=== PATIENT | female | born 2000 | race Hispanic/Latino ===

== ENCOUNTER 2023-01-16 23:22 | Emergency (ER) | payer BC ==
--- OUTSIDE RECORDS SUMMARY | 2023-01-16 23:27 | XMS REPORT | Continuity of Care Document ---
:2000 Author Organization [facility] t Address [address] [place] [address] Care Team Providers Name Role Phone ESTELA BARRON Primary Care Physician Unavailable DR ESTELA BARRON Attending Clinician Unavailable [id number] Attending Clinician Unavailable [id number] Attending Clinician Unavailable Siva_Papsteffi Attending Clinician Unavailable Ayeni_Ibitoye_Olubu Attending Clinician Unavailable Jolanta Attending Clinician Unavailable AMY Attending Clinician Unavailable DR ESTELA BARRON Admitting Clinician Unavailable Siva_Papsteffi Admitting Clinician Unavailable Ayeni_Ibitoye_Olubu Admitting Clinician Unavailable Jolanta Admitting Clinician Unavailable AMY Admitting Clinician Unavailable Payers Payer Name Policy Type Policy Number Effective Date Expiration Date Marva LINDA [place] MADDI [id number] [facility] [id number] 2014 [place] (PPO) 00:00:00 [facility]OD [id number] ADMIN Problems Condition Condition Condition Status Onset Resolution Last Treating Co mments Source Name Details Category Date Date Treatment Clinician Date History of History of Problem Active 2020-0 M [place] chlamydial Chlamydial 7-20 da infection Infection 00:00: Medi angel 00 Group History of History of Problem Active 2020-0 [facility] [place] sexually Sexually 2-26 da transmitte Transmitte 00:00: Me dical d disease d Disease 00 Grou p Initial Initial Problem Active 0 [place] prescripti Prescripti 2-26 da on of oral on of Oral 00:00: Me dical contracept Contracept 00 Gr oup ion ion Bacterial Bacterial Problem Active 0 [place] vaginosis Vaginosis 1-13 da 00:00: Medical 00 Group Chlamydial Chlamydial Problem Active 2020-0 [place] infection Infection 113 da 00:00: Medical 00 Group Infection Infection Problem Active 0 [place] by by 1 da Trichomona Trichomona 00:00: Me dical s s 00 Group High risk High Risk Problem Active 0 [place] sexual Sexual 1 da behavior Behavior 00:00: Medica l 00 Group Proteinuri Proteinuri Problem Active 2019-0 [place] a a 1 da 00:00: Medical 00 Group Venereal Venereal Problem Active 0 [place] disease Disease 1 da screening Screening 00:00: [facility] angel 00 Group Exposure Exposure Problem Active [place] to to 108 da Neisseria Neisseria 00:00: [facility] gonorrhoea Gonorrhoea 00 Gr oup e e Obesity Obesity Problem Active [place] [facility] Upper Upper Problem Active [place] respirator Respirator da y y Medical infection Infection Grou p Multiple Multiple Problem Active [place] boils Boils [facility] Group Acanthosis Acanthosis Problem Active M [place] nigricans Nigricans da Medical Group Abdominal Abdominal Problem Active [place] pain Pain da [facility] Allergies, Adverse Reactions, Alerts Allergy Allergy Status Severity Reaction(s) Onset Inactive Treating Comm ents Source Name Type Date Date Clinician No Known MA Active UNKNOWN [facility] Social History Smoking Status Start Date Stop Date Source Never Smoker [facility] Medications Ordered Filled Start Stop Current Ordering Indication Dosage Frequency Signature Comments Components Source Medication Medication Date Date Medication? Clinician (SIG) Name Name Xulane 150 Xulane 150 No 1patch( Q1W Xulane 150 [place] mcg-35 mcg-35 es) mcg-35 da mcg/24 hr mcg/24 hr mcg/24 hr Medical transdermal transdermal transderma Group patch Apply patch Apply l patch 1 patch 1 patch Apply 1 every week every week patch by by every week transdermal transdermal by route. route. transderma l route. ferrous ferrous No ferrous [place] sulfate 325 sulfate 325 sulfate da mg (65 mg mg (65 mg 325 mg (65 [facility] iron) iron) mg iron) al tablet TAKE tablet TAKE tablet Health 1 TABLET BY 1 TABLET BY TAKE 1 Outreac MOUTH ONCE MOUTH ONCE TABLET BY h A DAY Take A DAY Take MOUTH ONCE Program 2 hours 2 hours A DAY Take before or 2 before or 2 2 hours hours after hours after before or other other 2 hours supplements supplements after or or other medications medications supplement . . s or medication s. Immunizations Ordered Immunization Filled Immunization Date Status Commen ts Source Name Name influenza, influenza, 2014-04-12 Completed [place] injectable, injectable, 11:26:04 Medical Grou p quadrivalent, quadrivalent, preservative free preservative free HPV, quadrivalent HPV, quadrivalent 2014-04-12 Completed [place] 11:26:03 Medical Group HPV, quadrivalent HPV, quadrivalent 2013-11-15 Completed [place] 11:03:00 Medical Group varicella varicella 2013-11-15 Completed [place] 11:03:00 Medical Group meningococcal MCV4P meningococcal MCV4P 2013-11-15 Completed [place] 11:02:00 Medical Group Tdap Tdap 2013-11-15 Completed [place] 11:02:00 Medical Group Hep A, ped/adol, 2 Hep A, ped/adol, 2 2008-07-24 Completed [place] dose dose 00:00:00 Medical Group Hep A, ped/adol, 2 Hep A, ped/adol, 2 2005-01-14 Completed [place] dose dose 00:00:00 Medical Group pneumococcal pneumococcal 2005-01-14 Completed [place] conjugate PCV 7 conjugate PCV 7 00:00:00 [facility] Group DTaP, 5 pertussis DTaP, 5 pertussis 2004-10-05 Completed [place] antigens antigens 00:00:00 Medical Group IPV IPV 2004-10-05 Completed [place] 00:00:00 Medical Group MMR MMR 2004-10-05 Completed [place] 00:00:00 Medical Group DTaP, 5 pertussis DTaP, 5 pertussis 2002-04-04 Completed [place] antigens antigens 00:00:00 Medical Group MMR MMR 2002-04-04 Completed [place] 00:00:00 Medical Group pneumococcal pneumococcal 2002-04-04 Completed [place] conjugate PCV 7 conjugate PCV 7 00:00:00 Medi angel Group DTaP, 5 pertussis DTaP, 5 pertussis 2002-01-17 Completed [place] antigens antigens 00:00:00 Medical Group Hib (PRP-T) Hib (PRP-T) 2002-01-17 Completed [place] 00:00:00 Medical Group Hep B, adolescent or Hep B, adolescent or 2002-01-17 Completed [place] pediatric pediatric 00:00:00 Medical Group IPV IPV 2002-01-17 Completed [place] 00:00:00 Medical Group DTaP, 5 pertussis DTaP, 5 pertussis 2001-10-06 Completed [place] antigens antigens 00:00:00 Medical Group Hib (PRP-T) Hib (PRP-T) 2001-10-06 Completed [place] 00:00:00 Medical Group Hep B, adolescent or Hep B, adolescent or 2001-10-06 Completed [place] [facility] pediatric 00:00:00 Medical Group IPV IPV 2001-10-06 Completed [place] 00:00:00 Medical Group Hep B, adolescent or Hep B, adolescent or 2000 Completed [place] [facility] pediatric 00:00:00 Medical Group Vital Signs Vital Name Observation Time Observation Value Comments Source BP Diastolic 2021-12-01 00:00:00 79 mm[Hg] [facility] Height 2021-12-01 00:00:00 57 [in_i] [facility] BMI (Body Mass 2021-12-01 00:00:00 46.8 kg/m2 [facility] Index[facility] Group BP Systolic 2021-12-01 00:00:00 119 mm[Hg] [facility] Body Weight 2021-12-01 00:00:00 216.5 [lb_av] [facility] BP Diastolic 2021-03-25 00:00:00 82 mm[Hg] [place] [facility] Height 2021-03-25 00:00:00 57 [in_i] [place] [facility] BMI (Body Mass 2021-03-25 00:00:00 44.1 kg/m2 [place] mechanical meter tester [facility] Index) [facility] BP Systolic 2021-03-25 00:00:00 124 mm[Hg] [place] [facility] Body Weight 2021-03-25 00:00:00 3264 [oz_av] [place] [facility] BP Diastolic 2021-02-06 00:00:00 78 mm[Hg] [place] [facility] Height 2021-02-06 00:00:00 57 [in_i] [place] [facility] BMI (Body Mass 2021-02-06 00:00:00 45 kg/m2 [place] mechanical meter tester [facility] Index) [facility] BP Systolic 2021-02-06 00:00:00 111 mm[Hg] [place] [facility] Body Weight 2021-02-06 00:00:00 207.8 [lb_av] [place] [facility] BP Diastolic 2020-06-24 00:00:00 83 mm[Hg] [facility] Height 2020-06-24 00:00:00 57 [in_i] [facility] BMI (Body Mass 2020-06-24 00:00:00 45.2 kg/m2 [place] mechanical meter tester Medical Index) Group BP Systolic 2020-06-24 00:00:00 130 mm[Hg] [facility] Body Weight 2020-06-24 00:00:00 209 [lb_av] [facility] BP Diastolic 2020-01-29 00:00:00 96 mm[Hg] [place] [facility] Height 2020-01-29 00:00:00 57 [in_i] [place] [facility] BMI (Body Mass 2020-01-29 00:00:00 44.7 kg/m2 [place] mechanical meter tester [facility] Index) [facility] BP Systolic 2020-01-29 00:00:00 122 mm[Hg] [place] [facility] Body Weight 2020-01-29 00:00:00 206.6 [lb_av] [place] [facility] BP Diastolic 2019-12-17 00:00:00 80 mm[Hg] [facility] Height 2019-12-17 00:00:00 57 [in_i] [facility] BMI (Body Mass 2019-12-17 00:00:00 44.5 kg/m2 [place] mechanical meter tester Medical Index) Group BP Systolic 2019-12-17 00:00:00 136 mm[Hg] [facility] Body Weight 2019-12-17 00:00:00 205.7 [lb_av] [facility] BP Diastolic 2019-07-25 00:00:00 76 mm[Hg] [facility] Height 2019-07-25 00:00:00 57 [in_i] [facility] BMI (Body Mass 2019-07-25 00:00:00 45.7 kg/m2 [facility] mechanical meter tester Medical Index) Group BP Systolic 2019-07-25 00:00:00 116 mm[Hg] [facility] Body Weight 2019-07-25 00:00:00 211.2 [lb_av] [facility] BP Diastolic 2019-06-06 00:00:00 80 mm[Hg] [facility] Height 2019-06-06 00:00:00 57 [in_i] [facility] BMI (Body Mass 2019-06-06 00:00:00 44.8 kg/m2 [facility] mechanical meter tester Medical Index) Group BP Systolic 2019-06-06 00:00:00 130 mm[Hg] [facility] Body Weight 2019-06-06 00:00:00 207.2 [lb_av] [facility] Procedures Procedure Date / Time Performed Performing Clinician [facility] e US, transvaginal 2021-02-06 00:00:00 [facility] US, transvaginal 2020-01-29 00:00:00 [facility] Plan of Care Planned Activity Planned Date Details Comments Source Diagnostic Test 2021-12-01 urinalysis, [facility] Pending 00:00:00 dipstick [code = Group urinalysis, dipstick] Diagnostic Test 2021-12-01 test, [facility] Pending 00:00:00 urine [code = Group test, urine] Diagnostic Test 2021-12-01 CT + NG + TV, DNA, [place] mechanical meter tester Medical Pending 00:00:00 urine/swab [code = Group CT + NG + TV, DNA, urine/swab] Diagnostic Test 2021-12-01 HIV (1+2) Ab [facility] Pending 00:00:00 screen, serum [code Group = HIV (1+2) Ab screen, serum] Diagnostic Test 2021-12-01 R[facility]rapid plasma [facility] Pending 00:00:00 reagin), serum Group [code = RPR (rapid plasma reagin), serum] Diagnostic Test 2021-12-01 HBsAg (hepatitis B [facility] mechanical meter tester [facility] Pending 00:00:00 surface Ag), serum Group [code = HBsAg (hepatitis B surface Ag), serum] Diagnostic Test 2021-12-01 prolactin, [facility] Pending 00:00:00 [code = prolactin, Group serum] Diagnostic Test 2021-12-01 TSH, serum, reflex [facility] mechanical meter tester [facility] Pending 00:00:00 free T4 [code = Group TSH, serum, reflex free T4] Diagnostic Test 2021-12-01 FSH [facility] [facility] Pending 00:00:00 (follicle-stimulati Group ng hormone), serum [code = FSH (follicle-stimulati ng hormone), serum] Diagnostic Test 2021-12-01 estradiol, serum [facility] Pending 00:00:00 [code = estradiol, Group serum] Diagnostic Test 2021-12-01 testosterone, [place] [facility] edical Pending 00:00:00 total, serum [code Group = testosterone, total, serum] Diagnostic Test 2021-12-01 dhea-sulfate, serum [facility] orda [facility] Pending 00:00:00 [code = Group dhea-sulfate, serum] Diagnostic Test 2021-12-01 17-[facility]progester [facility] one, QN, serum Group [code = 17-hydroxyprogester one, QN, serum] Diagnostic Test 2021-03-25 lipid panel, serum [facility] Pending 00:00:00 [code = lipid Health Outreac h panel, serum] Program Diagnostic Test 2021-03-25 vitamin B12 + [facility] Pending 00:00:00 folate, serum or Health Outr each blood [code = Program vitamin B12 + folate, serum or blood] Diagnostic Test 2021-03-25 CBC w/ auto diff [place] [facility] Pending 00:00:00 [code = CBC w/ auto Health O utreach diff] Program Diagnostic Test 2021-03-25 iron + TIBC + [facility] Pending 00:00:00 ferritin, serum Health Outre ach [code = iron + TIBC Program + ferritin, serum] Diagnostic Test 2021-03-25 retic count, blood [place] mechanical meter tester [facility] Pending 00:00:00 [code = retic Health Outreac h count, blood] Program Diagnostic Test 2021-03-25 CMP, serum or [facility] Pending 00:00:00 plasma [code = CMP, Health O utreach serum or plasma] Program Future Scheduled Test Lose weight 2 lbs [place] [facility] per week. Low Health Outreac h carbohydrate, low Program sugar, and low calorie diet. Exercise moderate intensity 30 mins/day for 5 days per week. [code = Lose weight 2 lbs per week. Low carbohydrate, low sugar, and low calorie diet. Exercise moderate int] Encounters Start End Encounter Admission Attending Care Care Encounter Source Date/Time Date/Time Type Type Clinicians Facility Department ID 2021-09-28 Outpatient ESTELA BARRON [id number] 09:10:00 [id number] [facility] [id number] [facility] 2022-09-13 2022-09-13 Outpatient G_Pappas [facility] [id number] [place] 00:00:00 00:00:00 0417 [facility] 2022-06-17 2022-06-17 Outpatient G_Pappas [facility]G 2022 [place] 00:00:00 00:00:00 0119 [facility] 2022-03-16 2022-03-16 Outpatient G_Pappas [facility] MM[facility] [id number] [place] 00:00:00 00:00:00 1018 [facility] 2022-02-09 2022-02-09 Outpatient G_Pappas MMG MMG [id number] [place] 00:00:00 00:00:00 0913 [facility] 2022-01-05 2022-01-05 Outpatient G_Pappas [facility] MMG [id number] [place] 00:00:00 00:00:00 0809 [facility] 2021-12-01 2021-12-01 Outpatient G_Pappas [facility] MMG 2021 [place] 05:09:00 05:09:00 0705 [facility] 2021-12-01 2021-12-01 Danielle [facility] [place] - [id number] [place] 00:00:00 00:00:00 Discovery Conner da [facility]: [address], [place] [address] , Ph. [phone] 2021-11-26 2021-11-26 Outpatient G_Pappas [facility] MM[facility] 2021 [place] 05:48:00 05:48:00 0630 [facility] 2021-09-25 2021-09-25 Outpatient Ayeni_Ibito [facility] 927 [place] 01:12:00 01:12:00 ye[facility]Olubu [facility] 2021-08-10 2021-08-10 Outpatient G_Pappas [facility] MMG 2021 [place] 01:26:00 01:26:00 0314 [facility] 2021-05-01 2021-05-01 Outpatient G_Pappas [facility] MMG 2020 [place] 11:37:00 11:37:00 1203 [facility] 2021-03-25 2021-03-25 Outpatient Ayeni_Ibito [facility] 927 [id number] [place] 12:52:00 12:52:00 ye_Olubu 1027 [facility] 2021-03-25 2021-03-25 [facility] [place] - [id number] [place] 00:00:00 00:00:00 Keanu Armas CHANGE MANAGEMENT DIRECTOR-GIS SPECIALIST-C: [facility] [address], [facility] [address] Puja toribio , Ph. 2021-03-23 2021-03-23 Outpatient Ayeni_Ibito [place] [id number] [place] 11:23:00 11:23:00 ye_Olubu 1025 [facility] 2021-03-23 2021-03-23 Outpatient Ayeni_Ibito [place] [id number] [place] 11:23:00 11:23:00 ye_Olubu 1026 [facility] 2021-02-06 2021-02-06 Outpatient Ayeni_Ibito [place] [id number] [place] 12:05:00 12:05:00 ye_Olubu 0910 [facility] 2021-02-06 2021-02-06 Roopa [facility] [place] - [id number] [place] 00:00:00 00:00:00 Bernie Real, [facility] Episco p GIS SPECIALIST: [address] [facility] F N, FOXER [facility] [address] Puja toribio , Ph. 2020-12-19 2020-12-19 Outpatient G_Pappas [facility] 2020 [place] 02:48:00 02:48:00 0723 [facility] 2020-08-27 2020-08-27 Outpatient G_Pappas [facility] [id number] [place] 05:17:00 05:17:00 0331 [facility] 2020-08-05 2020-08-05 Outpatient Ayeni_Ibito [facility] [place] 01:00:00 01:00:00 ye_Olubu 0309 [facility] 2020-06-24 2020-06-24 Outpatient G_Pappas [facility] [id number] [place] 10:07:00 10:07:00 0126 [facility] 2020-06-24 2020-06-24 [facility] [place] - [id number] M [place] 00:00:00 00:00:00 Discovery robby Hyatt MD: [address] [facility] Group [facility] [address], [place] [address] , Ph. [phone] 2020-04-16 2020-04-16 Outpatient V_Landis [facility] 2019 [place] 02:25:00 02:25:00 1118 [facility] Group 2020-04-10 2020-04-10 Outpatient Ayeni_Ibito MEHOP MEHOP 927 [place] 10:19:00 10:19:00 ye_Olubu 1112 [facility] 2020-03-06 2020-03-06 Outpatient V_Landis [facility] 2019 [place] 01:05:00 01:05:00 1008 da [facility] Group 2020-01-30 2020-01-30 Outpatient Ayeni_Ibito MEHOP MEHOP 927 [place] 05:11:00 05:11:00 ye_Olubu 0902 [facility] 2020-01-30 2020-01-30 Outpatient V_Landis [facility] 2019 [place] 01:02:00 01:02:00 0902 Medical Group 2020-01-29 2020-01-29 Outpatient Ayeni_Ibito MEHOP MEHOP 927 [place] 04:38:00 04:38:00 ye_Olubu 0901 [facility] 2020-01-29 2020-01-29 [place]ub[place]ola [place] - [id number] [place] 00:00:00 00:00:00 Autumn Pollack MD: [facility] [id number] HOP - MEHOP [address] Outre[address], [place], [place] [address] , Ph. 2020-01-27 2020-01-27 Outpatient LISTER_MELI MEHOP MEHOP 927 [place] 01:03:00 01:03:00 SSA 0830 [facility] 2020-01-23 2020-01-23 Outpatient LISTER_MELI MEHOP [facility] 927 [place] 10:37:00 10:37:00 SSA 0826 [facility] 2020-01-19 2020-01-19 Outpatient LISTER_MELI MEHOP [facility] 927 [place] 01:14:00 01:14:00 SSA 0822 [facility] 2020-01-17 2020-01-17 Outpatient LISTER_MELI MEHOP [facility] 927 [place] 12:03:00 12:03:00 SSA 0820 [facility] 2019-12-18 2019-12-18 Outpatient V_Landis [facility] MMG 2019 [place] 05:27:00 05:27:00 0721 [facility] 2019-12-17 2019-12-17 Outpatient V_Landis MMG MMG 2019 [place] 05:03:00 05:03:00 0720 [facility] 2019-12-17 2019-12-17 Maria A Mendoza [facility] [place] - [id number] [place] 00:00:00 00:00:00 Discovery Juan da [facility]: 600 [facility] [address] [address] , Ph. [phone] 2019-10-31 2019-10-31 Outpatient V_Landis MMG MMG 2019 [place] 08:33:00 08:33:00 0715 [facility] 2019-10-31 2019-10-31 Outpatient V_Landis MMG MMG 2019 [place] 08:33:00 08:33:00 0717 [facility] 2019-10-18 2019-10-18 Outpatient V_Landis MMG MMG [id number] [place] 06:06:00 06:06:00 0526 [facility] 2019-07-27 2019-07-27 Outpatient V_Landis MMG MMG [id number] [place] 10:34:00 10:34:00 0228 [facility] 2019-07-25 2019-07-25 Outpatient V_Landis MMG MMG [id number] [place] 10:52:00 10:52:00 0226 [facility] 2019-07-25 2019-07-25 Maria A Mendoza [facility] [place] - [id number] [place] 00:00:00 00:00:[address] [facility]: [address] [place] [address] , Ph. [phone] 2019-07-20 2019-07-20 Outpatient V_Landis MMG MM 2019 [place] 03:42:00 03:42:00 0225 Medical Group 2019-07-20 2019-07-20 Outpatient V_Landis MMG MM 2019 [place] 03:42:00 03:42:00 0221 Medical Group 2019-06-07 2019-06-07 Outpatient V_Landis MMG MM 2019 [place] 09:45:00 09:45:00 0109 [facility] Group 2019-06-06 2019-06-06 Outpatient LISTER_ELISEO PAINTING [facility] 927 [place] 09:05:00 09:05:[address] [facility] Outreac h Program 2019-06-06 2019-06-06 Outpatient V_Landis MMG MM 2019 [place] 05:36:00 05:36:00 0108 Medical Group 2019-06-06 2019-06-06 Maria A Mendoza [facility] [place] - [id number] [place] 00:00:00 00:00:[address] [facility]: [address] [place] [phone] , Ph. [phone] Results Test Description Test Time Test Comments Results Result Comments Source test, urine 2021-12-01 09:13:00 Test Item Value Reference Range Interpretation Comme nts Test (test code = Test) negative [facility] panel - [id number] 09:12:00 Test Item Value Reference Range Interpretation Comments Leukocytes (test code = Negative Leukocytes) Nitrite (test code = negative Nitrite) Urobilinogen (test code = .2 Urobilinogen) Protein (test code = 30 Protein) pH (test code = pH) 6.0 Blood (test code = Blood) Non-Hemolyzed: Trace Specific Dupree (test 1.025 code = Specific Dupree) Ketone (test code = Trace Ketone) Bilirubin (test code = Small Bilirubin) Glucose (test code = Negative Glucose) Appearance (test code = Clear Appearance) Color (test code = Color) Yellow [facility] [id number] 15:22:19 Test Item Value Reference Range Interpretation Comments Test (test code = negative Test) [facility] (dipstick) panel - [id number] 15:13:58 Test Item Value Reference Range Interpretation Comments Leukocytes (test code = Leukocytes) Small Nitrite (test code = Nitrite) negative Urobilinogen (test code = .2 Urobilinogen) Protein (test code = Protein) 30 pH (test code = pH) 6.0 Blood (test code = Blood) Large Specific Dupree (test code = 1.030 Specific Dupree) Ketone (test code = Ketone) Negative Bilirubin (test code = Bilirubin) Negative Glucose (test code = Glucose) Negative Appearance (test code = Appearance) Clear Color (test code = Color) Yellow [facility]
[2023-01-17] MEDS ORDERED: FAMOTIDINE 20 MG/2 ML VIAL IV ONE (00:32)
[2023-01-17] MEDS ORDERED: ONDANSETRON 4 MG/2 ML VIAL ONE (00:32)
[2023-01-17] MEDS ORDERED: KETOROLAC 30 MG/ML INJ ONE (00:32)
[2023-01-17] MEDS ORDERED: NA CHLORIDE 0.9% 1,000 ML ONE (00:33)
[2023-01-17 01:37] LABS: Absolute Lymphocytes (CBC) 2.1 K/uL (0.7-4.9); Hematocrit 35.8 % (36.0-45.0); Lymphocytes % 19.5 % (15.3-44.8); MCV 80.5 fL (80-100); MPV 7.3 fL (7.6-11.3); Platelets 328 thou/uL (152-406); RBC Red Blood Cell Count 4.45 M/uL (3.86-4.86)
[2023-01-17 01:46] LABS: Specific Gravity 1.017 (1.005-1.030)
[2023-01-17 01:47] LABS: Specific Gravity 1.017 (1.005-1.030); Urine Bacteria None Seen /HPF (<20); Urine Bilirubin NEGATIVE (Negative); Urine Blood Negative (Negative); Urine Clarity Extremely Turbid (Clear); Urine Color Light-Yellow (Yellow); Urine Glucose NEGATIVE (Negative); Urine Protein NEGATIVE (Negative); Urine RBC None Seen /HPF (None Seen); Urine Urobilinogen Normal (Normal)
[2023-01-17 01:47] LABS: Albumin 3.4 g/dL (3.4-5.0); Bilirubin Total 0.2 mg/dL (0.2-1.0); Potassium 3.9 mEq/L (3.5-5.1); Protein, Total 7.9 g/dL (6.4-8.2)
--- NOTE | 2023-01-17 03:08 | ER ---
Nurse's Notes [facility] Name: April Luna Age: 22 yrs Sex: Female : 2000 Arrival Date: 01/16/2023 Time: 23:22 Bed 19 Private MD: Diagnosis: Lower abdominal pain, unspecified Presentation: 01/16 23:47 Chief complaint: Patient states: I woke up at 10:30 pm with a squeezing pressure to vc1 both ovaries. I usually have cramps but never this severe plus my period was 2 weeks ago. I tried to go to the bathroom to see if that would help but when I got up it took my breath away. Coronavirus screen: Vaccine status: Patient reports being unvaccinated. Client denies travel out of the [place] in the last 14 days. At this time, the client does not indicate any symptoms associated with coronavirus-19. Ebola Screen: Patient negative for fever greater than or equal to 101.5 degrees Fahrenheit, and additional compatible Ebola Virus Disease symptoms Patient denies exposure to infectious person. Patient denies travel to an Ebola-affected area in the 21 days before illness onset. No symptoms or risks identified at this time. Initial Sepsis Screen: Does the patient meet any 2 criteria? No. Patient's initial sepsis screen is negative. Does the patient have a suspected source of infection? No. Patient's initial sepsis screen is negative. Risk Assessment: Do you want to hurt yourself or someone else? Patient reports no desire to harm self or others. Onset of symptoms was January 16, 2023 at 22:30. 23:47 Method Of Arrival: Ambulatory vc1 23:47 Acuity: REZA 3 vc1 Triage Assessment: 23:50 General: Appears in no apparent distress. uncomfortable, Behavior is calm, cooperative, vc1 appropriate for age. Pain: Complains of pain in right inguinal area and left inguinal area Pain does not radiate. Quality of pain is described as aching, crampy, pressure, Aggravated by movement Noted to be grimacing. EENT: No deficits noted. No signs and/or symptoms were reported regarding the EENT system. Neuro: Level of Consciousness is awake, alert, obeys commands, Oriented to person, place, time, situation, Appropriate for age. Cardiovascular: No deficits noted. Respiratory: Airway is patent Respiratory effort is even, unlabored, Respiratory pattern is regular, symmetrical. GI: No deficits noted. No signs and/or symptoms were reported involving the gastrointestinal system. : Reports cramping, in bilateral lower quadrant(s) pain in bilateral in lower back Denies burning with urination, urinary frequency, vaginal bleeding. Derm: No deficits noted. No signs and/or symptoms reported regarding the dermatologic system. Musculoskeletal: No deficits noted. No signs and/or symptoms reported regarding the musculoskeletal system. 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 - Social history:: Smoking status: Patient reports the use of cigarette tobacco products, denies chronic smoking, but will smoke occasionally. Screenin:50 [facility] ED Fall Risk Assessment (Adult) History of falling in the last 3 months, ha1 including since admission No falls in past 3 months (0 pts) Confusion or Disorientation No (0 pts) Intoxicated or Sedated No (0 pts) Impaired Gait No (0 pts) Mobility Assist Device Used No (0 pt) Altered Elimination No (0 pt) Score/Fall Risk Level 0 - 2 = Low Risk Oriented to surroundings, Maintained a safe environment, Educated pt \T\ family on fall prevention, incl call for assistance when getting out of bed, Hourly rounding (assess needs \T\ fall precautionary measures) done. Abuse screen: Denies threats or abuse. Denies injuries from another. Nutritional screening: No deficits noted. Tuberculosis screening: No symptoms or risk factors identified. Assessment: 23:34 General: Appears comfortable, Behavior is. Pain: Complains of pain in pelvis Pain does ha1 not radiate. Pain currently is 5 out of 10 on a pain scale. Quality of pain is described as pressure, throbbing, Pain began suddenly. Neuro: Level of Consciousness is awake, alert, obeys commands, Oriented to person, place, time, situation. Cardiovascular: Patient's skin is warm and dry. Respiratory: Airway is patent Respiratory effort is even, unlabored, Respiratory pattern is regular, symmetrical. GI: Abdomen is round non-distended, Bowel sounds present X 4 quads. Abd is soft and non tender X 4 quads. : Reports suprapubic pain. 01/17 00:30 Reassessment: Patient and/or family updated on plan of care and expected duration. Pain ha1 level reassessed. Patient is alert, oriented x 3, equal unlabored respirations, skin warm/dry/pink. 01:30 Reassessment: Patient and/or family updated on plan of care and expected duration. Pain ha1 level reassessed. Patient is alert, oriented x 3, equal unlabored respirations, skin warm/dry/pink. 02:30 Reassessment: Patient and/or family updated on plan of care and expected duration. Pain ha1 level reassessed. Patient is alert, oriented x 3, equal unlabored respirations, skin warm/dry/pink. Vital Signs: 01/16 23:47 BP 106 / 90; Pulse 84; Resp 16; Temp 97.8; Pulse Ox 97% ; Weight 97.52 kg; Height 5 ft. vc1 10 in. ; 01/17 00:45 BP 121 / 65; Pulse 82; Resp 18 S; Pulse Ox 99% on R/A; ha1 01:45 BP 123 / 58; Pulse 75; Resp 18 S; Pulse Ox 100% on R/A; ha1 02:45 BP 123 / 59; Pulse 75; Resp 17 S; Pulse Ox 100% on R/A; ha1 01/16 23:47 Body Mass Index 30.85 (97.52 kg, 177.8 cm) vc1 ED Course: 01/16 23:32 Patient arrived in ED. es 23:34 David Christopher PA is PHCP. cp 23:34 Juan Luis Soria MD is Attending Physician. cp 23:34 Patient has correct armband on for positive identification. Placed in gown. Bed in low ha1 position. Call light in reach. Side rails up X 1. 23:34 Arm band placed on right wrist. ha1 23:49 Triage completed. vc1 23:50 Louise Galeana RN is Primary Nurse. ha1 01/17 01:17 CBC with Diff Sent. ha1 01:18 CMP Sent. ha1 01:18 Lipase Sent. ha1 02:20 CT Abd/Pelvis - IV Contrast Only In Process Unspecified. EDMS 03:13 No provider procedures requiring assistance completed. IV discontinued, intact, vc1 bleeding controlled, No redness/swelling at site. Pressure dressing applied. Administered Medications: 01:07 Drug: TORadol - Ketorolac IVP 15 mg Route: IVP; Site: left forearm; ha1 01:10 Drug: NS 0.9% IV 1000 ml Route: IV; Rate: 1 bolus; Site: left forearm; ha1 01:10 Drug: Famotidine IVP 20 mg Route: IVP; Site: left forearm; ha1 01:13 Drug: Ondansetron IVP 4 mg Route: IVP; Site: left forearm; ha1 Medication: 01/16 23:51 VIS not applicable for this client. ha1 Outcome: 01/17 03:07 Discharge ordered by . cp 03:13 Discharged to home ambulatory. vc1 03:13 Condition: good 03:13 Discharge instructions given to patient, Instructed on discharge instructions, follow up and referral plans. medication usage, Demonstrated understanding of instructions, follow-up care, medications, Prescriptions given X 2. 03:22 Patient left the ED. vc1 Signatures: Dispatcher [employer] [facility] Narda Ervin Corey, PA PA cp Calcote, Vanessa RN RN vc1 Louise Galeana RN RN ha1
--- NOTE | 2023-01-17 03:08 | EDPHYS ---
Physician Documentation [facility] Name: April Luna Age: 22 yrs Sex: Female : 2000 Arrival Date: 01/16/2023 Time: 23:22 Bed 19 Private MD: ED Physician Juan Luis Soria HPI: 01/16 23:40 This 22 yrs old Female presents to ER via Ambulatory with complaints of OVARY cp PAIN. 23:40 The patient presents with abdominal pain in the lower abdomen. cp 23:40 Onset: The symptoms/episode began/occurred 1.5 hour(s) ago. The symptoms radiate to cp back. Associated signs and symptoms: Pertinent positives: loose stools, Pertinent negatives: anorexia, blood in stools, chest pain, constipation, diarrhea, dysuria, fever, vomiting. 23:40 The symptoms are described as crampy. Severity of pain: in the emergency department the cp pain has improved moderately. YARD HAND: 23:52 LMP N/A - Irregular menses vc1 Historical: - Allergies: 23:49 No Known Allergies; vc1 - Home Meds: 23:49 None [Active]; vc1 - PMHx: 23:49 None; vc1 - PSHx: 23:49 None; vc1 - Immunization history:: Client reports having NOT received the Covid vaccine. - Social history:: Smoking status: Patient reports the use of cigarette tobacco products, denies chronic smoking, but will smoke occasionally. ROS: 23:45 Constitutional: Negative for body aches, chills, fever, poor PO intake. cp 23:45 Eyes: Negative for injury, pain, redness, and discharge. cp 23:45 ENT: Negative for drainage from ear(s), ear pain, sore throat, difficulty swallowing, difficulty handling secretions. 23:45 Cardiovascular: Negative for chest pain, edema, palpitations. 23:45 Respiratory: Negative for cough, shortness of breath, wheezing. 23:45 Abdomen/GI: Positive for abdominal cramps, of the right lower quadrant and left lower quadrant, loose stools, Negative for vomiting, diarrhea, constipation, anorexia. 23:45 Back: Positive for radiated pain, of the low back area, Negative for injury or acute deformity, decreased range of motion. 23:45 : Negative for urinary symptoms, vaginal bleeding, vaginal discharge. 23:45 Neuro: Negative for altered mental status, dizziness, headache, weakness. 23:45 All other systems are negative. Exam: 23:50 Constitutional: The patient appears in no acute distress, alert, awake, non-toxic, well cp developed, well nourished, obese. 23:50 Head/Face: Normocephalic, atraumatic. cp 23:50 Eyes: Periorbital structures: appear normal, Conjunctiva: normal, no exudate, no injection, Sclera: no appreciated abnormality, Lids and lashes: appear normal, bilaterally. 23:50 ENT: External ear(s): are unremarkable, Nose: is normal, Mouth: Lips: moist, Oral mucosa: pink and intact, moist, Posterior pharynx: is normal, airway is patent, no erythema, no exudate. 23:50 Chest/axilla: Inspection: normal. 23:50 Cardiovascular: Rate: normal, Rhythm: regular. 23:50 Respiratory: the patient does not display signs of respiratory distress, Respirations: normal, no use of accessory muscles, no retractions, labored breathing, is not present, Breath sounds: are clear throughout, no decreased breath sounds, no stridor, no wheezing. 23:50 Abdomen/GI: Inspection: obese Bowel sounds: active, Palpation: soft, in all quadrants, mild abdominal tenderness, in the right lower quadrant and left lower quadrant, rebound tenderness, is not appreciated, involuntary guarding, is not appreciated. 23:50 Back: CVA tenderness, is absent. Vital Signs: 23:47 BP 106 / 90; Pulse 84; Resp 16; Temp 97.8; Pulse Ox 97% ; Weight 97.52 kg; Height 5 ft. vc1 10 in. ; 01/17 00:45 BP 121 / 65; Pulse 82; Resp 18 S; Pulse Ox 99% on R/A; ha1 01:45 BP 123 / 58; Pulse 75; Resp 18 S; Pulse Ox 100% on R/A; ha1 02:45 BP 123 / 59; Pulse 75; Resp 17 S; Pulse Ox 100% on R/A; ha1 01/16 23:47 Body Mass Index 30.85 (97.52 kg, 177.8 cm) vc1 MDM: 01/16 23:34 Patient medically screened. cp 01/17 03:05 Data reviewed: vital signs, nurses notes, lab test result(s), radiologic studies, CT cp scan. 03:05 Differential diagnosis: appendicitis, Ectopic , gastritis, Ovarian Torsion, cp Pelvic Inflammatory Disease, Tubal Ovarian Abcess, Ureterolithiasis, urinary tract infection. I considered the following discharge prescriptions or medication management in the emergency department Medications were administered in the Emergency Department. See MAR. Counseling: I had a detailed discussion with the patient and/or guardian regarding the historical points, exam findings, and any diagnostic results supporting the discharge/admit diagnosis, lab results, radiology results, to return to the emergency department if symptoms worsen or persist or if there are any questions or concerns that arise at home. Response to treatment: the patient's symptoms have markedly improved after treatment, and as a result, I will discharge patient. 01/17 00:13 Order name: CBC with Diff; Complete Time: 02:02 cp 01/17 00:13 Order name: CMP; Complete Time: 02:02 cp 01/17 00:13 Order name: Lipase; Complete Time: 02:02 cp 01/17 00:13 Order name: Test, Urine; Complete Time: 02:02 cp 01/17 00:13 Order name: Urinalysis w/ reflexes; Complete Time: 02:02 cp 01/17 00:34 Order name: CT Abd/Pelvis - IV Contrast Only cp 01/17 00:13 Order name: IV Saline Lock; Complete Time: 01:17 cp 01/17 00:13 Order name: Labs collected and sent; Complete Time: 01:17 cp Administered Medications: 01:07 Drug: TORadol - Ketorolac IVP 15 mg Route: IVP; Site: left forearm; ha1 01:10 Drug: NS 0.9% IV 1000 ml Route: IV; Rate: 1 bolus; Site: left forearm; ha1 01:10 Drug: Famotidine IVP 20 mg Route: IVP; Site: left forearm; ha1 01:13 Drug: Ondansetron IVP 4 mg Route: IVP; Site: left forearm; ha1 Disposition: 05:42 Co-signature as Attending Physician, Juan Luis Soria MD I reviewed the patient's care rt provided by the Advanced Practice Provider and agree with the diagnosis and treatment plan. Disposition Summary: 01/17/23 03:07 Discharge Ordered Location: Home cp Problem: new cp Symptoms: have improved cp Condition: Stable cp Diagnosis - Lower abdominal pain, unspecified cp Followup: cp - With: Private Physician - When: 2 - 3 days - Reason: Recheck today's complaints Discharge Instructions: - Discharge Summary Sheet cp - Abdominal Pain, Adult cp Forms: - Medication Reconciliation Form cp - Thank You Letter cp - Antibiotic Education cp - Prescription Opioid Use cp - Patient Portal Instructions cp - Leadership Thank You Letter cp - Work release form vc1 Prescriptions: - Zofran 4 mg Oral Tablet - take 1 tablet by ORAL route every 12 hours As needed; 20 tablet; Refills: 0, cp Product Selection Permitted - dicyclomine 20 mg Oral Tablet - take 1 tablet by ORAL route 4 times per day; 30 tablet; Refills: 0, Product cp Selection Permitted Signatures: Dispatcher [employer] EDMS David Christopher PA PA cp Calcote, Vanessa RN RN vc1 Louise Galeana RN RN ha1 Juan Luis Soria MD MD rt
[2023-01-17 03:30] VITALS: TEMP 97.8
[2023-01-17 03:32] VITALS: BP 121/65; O2SAT 99
--- NOTE | 2023-01-17 15:19 | RAD REPORT ---
EXAM DESCRIPTION: CT - Abdomen Pelvis W Contrast - 01/17/2023 6:42 am CLINICAL HISTORY: Lower abdomen pain TECHNIQUE: Contiguous axial images obtained through the abdomen and pelvis following the uneventful administration of IV contrast. Coronal and sagittal reformatted images were provided. This exam was performed according to our departmental dose-optimization program, which includes autom ated exposure control, adjustment of the mA and/or kV according to patient size and/or use of iterati ve reconstruction technique. COMPARISON: None available for comparison. FINDINGS: Lung bases: Clear Liver: Unremarkable Gallbladder and biliary system: Partially contracted gallbladder. Pancreas: Unremarkable Spleen: Unremarkable Adrenals: Unremarkable Kidneys: Normal renal cortical enhancement. No calculi. No hydronephrosis. GI: No obstruction. No appreciable mucosal thickening. Appendix: No findings to suggest acute appendicitis. Urinary bladder: Unremarkable Reproductive: Unremarkable as visualized Lymph nodes: No pathologically enlarged lymph nodes. Peritoneum: No focal fluid collection. No free air. Vessels: No abdominal aortic aneurysm. Abdominal wall: Unremarkable Bones: Unremarkable IMPRESSION: No acute intra-abdominal or pelvic disease. Electronically signed by: Raimundo Singh MD 01/17/2023 2:34 AM CDT Due to temporary technical issues with the PACS/Fluency reporting system, reports are being signed by the in house radiologist without review as a courtesy to ensure prompt reporting. The interpreting r adiologist is fully responsible for the content of the report.
== END 2023-01-17 03:22 | disposition home or self-care (01) ==
LOC: ER 23:22
DX: R10.32 Left lower quadrant pain (principal); R10.31 Right lower quadrant pain; F17.210 Nicotine dependence, cigarettes, uncomplicated
CPT/HCPCS: 85025; 81001; 36415; 81025; 83690; 80053; 74177; 96375; 96374; 99284; Q9967; J2405; J7030